=== PATIENT | female | born 1965 | race Caucasian/White ===

== ENCOUNTER 2022-05-02 13:40 | Emergency (ER) | payer BC ==
[2022-05-02 13:48] VITALS: BP 126/75; PULSE 98; RESP 18; TEMP 98.1
[2022-05-02] MEDS ORDERED: LIDOCAINE 1% PF 10 MG/ML (5 ML AMP) SQ ONE (14:12)
[2022-05-02] MEDS ORDERED: DIPH,PERTUS(ACELL)TETVAC-LF 0.5 ML VIAL IM ONE (14:12)
--- NOTE | 2022-05-02 14:35 | ED ---
Wound/Laceration HPI - General Chief Complaint: Wound/Laceration Stated Complaint: Right Foot Laceration Time Seen by Provider: 05/02/22 13:51 Source: patient, RN notes reviewed Mode of arrival: wheelchair Limitations: no limitations - History of Present Illness Initial Comments: This is a 56-year-old female who presents to the emergency department for a laceration to the right heel. Patient states that she was walking down her stairs when she cut her right heel on a piece of metal that happened to be sitting on the step. Unsure when her last tetanus vaccine was. Denies any fevers, chills, sore throat, cough, dyspnea, chest pain, palpitations, abdominal pain, nausea, vomiting, diarrhea, back pain, or headaches. Extremity Location: Right: Foot Place: home Patient Tetanus UTD: No Context: accidental Treatments Prior to Arrival: bandage - Related Data Previous Rx's Medication Instructions Recorded Cephalexin [Keflex] 1,000 mg PO Q12HR 5 Days #20 cap 05/02/22 Fluconazole [Diflucan] 150 mg PO ONCE #2 tab 05/02/22 Allergies Allergy/AdvReac Type Severity Reaction Status Date / Time No Known Allergies Allergy Verified 05/02/22 13:48 Review of Systems ROS Statement: Those systems with pertinent positive or pertinent negative responses have been documented in the HPI. ROS Other: All systems not noted in ROS Statement are negative. Past Medical History Past Medical History: No Reported History History of Any Multi-Drug Resistant Organisms: None Reported Past Surgical History: No Surgical Hx Reported Past Psychological History: No Psychological Hx Reported Smoking Status: Never smoker Past Alcohol Use History: Occasional Past Drug Use History: None Reported General Exam Limitations: no limitations General appearance: alert, in no apparent distress Head exam: Present: atraumatic, normocephalic, normal inspection Respiratory exam: Present: normal lung sounds bilaterally. Absent: respiratory distress, wheezes, rales, rhonchi, stridor Cardiovascular Exam: Present: regular rate, normal rhythm, normal heart sounds. Absent: systolic murmur, diastolic murmur, rubs, gallop, clicks Neurological exam: Present: alert, oriented X3, CN II-XII intact Psychiatric exam: Present: normal affect, normal mood Skin exam: Present: other (4 cm semicircular laceration to the back of the right heel. Active bleeding. The bone is visible, however there is no bone involvement. The flap of skin is somewhat still attached.) Course Vital Signs 05/02/22 13:45 Temperature 98.1 F Pulse Rate 98 Respiratory 18 Rate Blood Pressure 126/75 O2 Sat by Pulse 99 Oximetry Procedures - Laceration Laceration #1 Consent Obtained: verbal consent Indication: laceration Site: foot Size (cm): 4 Description: flap Depth: simple, single layer Anesthetic Used: lidocaine 1% Anesthesia Technique: local infiltration Amount (mls): 2 Pre-repair: wound explored, irrigated extensively Type of Sutures: nylon Size of Sutures: 4-0 Number of Sutures: 4 Technique: simple, interrupted Medical Decision Making - Medical Decision Making This is a 56-year-old female who presents to the emergency department for a laceration of the right heel. This was repaired with sutures and Exofin. Exofin was used to tack down the corners that were unable to easily be closed with sutures. Tetanus status was updated. Prescription for Keflex sent to the pharmacy be taken for 5 days, as the laceration was down to the bone level with no evidence of damage to the bone. This was also a dirty injury. Patient notes that she tends to get yeast infections after taking oral antibiotics. Prescription for 2 tablets of Diflucan provided as well. She is instructed to take this if she begins to develop symptoms of a yeast infection. If symptoms do not resolve, she can repeat the dosage 3 days later. Signs and symptoms of infection reviewed, including fevers, erythema, swelling, and drainage from the wound. She'll return for suture removal in 10-14 days. Return precautions reviewed in depth, the patient is instructed to return to the emergency department with any new, worsening, or concerning symptoms. Patient verbalized understanding. This case was discussed in detail with the attending ED physician. Presentation, findings, and treatment plan discussed in detail as well. Disposition Clinical Impression: Laceration Disposition: HOME SELF-CARE Instructions (If sedation given, give patient instructions): Care For Your Stitches (ED), Laceration (ED), Skin Adhesive Care (ED) Additional Instructions: Return to the emergency department with any new, worsening, or concerning symptoms, and in 10-14 days for suture removal. Take the Keflex as prescribed for 5 days. Take Tylenol and ibuprofen as needed for pain. Keep the area dry for the first 24hrs, and then be sure to limit water exposure when you shower, do not keep it directly under running water for a prolonged period of time. Also make sure you avoid swimming. Do not apply topical medications, and do not rub, scratch, or pick at the wound. The adhesive will naturally fall off within 5-10 days. Take the Diflucan if you develop symptoms of a yeast infection. You will take one tablet and if symptoms do not improve, repeat the dose in 3 days. Prescriptions: Fluconazole [Diflucan] 150 mg PO ONCE #2 tab Cephalexin [Keflex] 1,000 mg PO Q12HR 5 Days #20 cap Is patient prescribed a controlled substance at d/c from ED?: No Referrals: Cesar Caballero DO [Primary Care Provider] - 1-2 days
[2022-05-02] MEDS ORDERED: TOPICAL SKIN ADHESIVE 1 EACH AMP TOPICAL ONE (15:13)
== END 2022-05-02 16:15 | disposition home or self-care (01) ==
LOC: EC 13:40
DX: S91.311A Laceration without foreign body, right foot, initial encounter (principal); Z23 Encounter for immunization; W26.8XXA Contact with other sharp object(s), not elsewhere classified, initial encounter
CPT/HCPCS: 90715; 99282; 90471; 12002; J2001